=== PATIENT | male | born 1985 | race Caucasian/White ===

== ENCOUNTER 2020-08-16 07:17 | Emergency (ER) | payer OTHER ==
[~2020-08-16] VITALS: Ht 162.6 cm; Wt 72.7 kg
[2020-08-16 07:17] VITALS: BP 127/71
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
[2020-08-16] MEDS: HYDROcodone/APAP 5/325MG 1 TAB TABLET PO ONE (08:53)
== END 2020-08-16 09:05 | disposition home or self-care (01) ==
LOC: ER 07:17
DX: S00.83XA Contusion of other part of head, initial encounter (principal); R53.1 Weakness; R20.2 Paresthesia of skin; F17.200 Nicotine dependence, unspecified, uncomplicated; V49.9XXA Car occupant (driver) (passenger) injured in unspecified traffic accident, initial encounter; Y93.89 Activity, other specified; Y92.413 State road as the place of occurrence of the external cause; Y99.8 Other external cause status
CPT/HCPCS: 70450; 72125; 99285